=== PATIENT | male | born 1975 | race Caucasian/White ===

== ENCOUNTER 2016-05-27 12:01 | Inpatient (IN) | payer OTHER ==
[2016-05-27 16:37] VITALS: BMI 27.6
--- NOTE | 2016-05-27 16:42 | HP ---
COWS - Scale Resting Pulse: 0= SD 80 or Below Sweatin= Chills/Flushing Restless Observation: 3= Extraneous Movement Pupil Size: 1= Pupils >than Normal Bone or Joint Aches: 2= Severe Diffuse Aches Runny Nose/ Eye Tearin= Runny Nose/Eyes GI Upset > 30mins: 3= Vomiting/Diarrhea Tremor Observation: 2= Slight Tremor Visible Yawning Observation: 0= None Anxiety or Irritability: 2=Irritable/Anxious Goose Flesh Skin: 0=Smooth Skin COWS Score: 16 Admission [facility] Chief Complaint: withdrawal sx Allergies/Adverse Reactions: Allergies Allergy/AdvReac Type Severity Reaction Status Date / Time Fish Containing Products Allergy Mild Hives Verified 05/27/16 16:38 No Known Drug Allergies Allergy Verified 05/27/16 16:38 History of Present Illness: 41 years old male with long history of heroin nicotine dependence, HAS HYPERTENSION AND DEPRESSION IS ADMITTED TO DETOX Exam Limitations: No Limitations - Ebola screening Have you traveled outside of the country in the last 21 days: No Have you had contact with anyone from an Ebola affected area: No Have you been sick,other than usual withdrawal symptoms: No Do you have a fever: No - Review of Systems Constitutional: Chills, Changes in sleep, Weight Stable EENT: reports: No Symptoms Reported, Dental Problems (SENSITIVE TO COLD) Respiratory: reports: No Symptoms reported Cardiac: reports: No Symptoms Reported GI: reports: Diarrhea, Nausea, Poor Fluid Intake, Vomiting, Abdominal cramping : reports: Other (OPIATE INDUCED HESITATION) Musculoskeletal: reports: Back Pain, Joint Pain, Muscle Pain, Neck Pain Integumentary: reports: Change in Color (BOTH FORE ARMS IV OPIATE) Neuro: reports: Tremors Endocrine: reports: No Symptoms Reported Hematology: reports: No Symptoms Reported Psychiatric: reports: Judgement Intact, Orientated x3, Depressed Other Systems: Reviewed and Negative Patient History - Patient Medical History Hx Anemia: No Hx Asthma: No Hx Chronic Obstructive Pulmonary Disease (COPD): No Hx Cancer: No Hx Cardiac Disorders: No Hx Congestive Heart Failure: No Hx Hypertension: Yes (non compliant) Hx Hypercholesterolemia: No Hx Pacemaker: No HX Cerebrovascular Accident: No Hx Seizures: No Hx Dementia: No Hx Diabetes: No Hx Gastrointestinal Disorders: No Hx Liver Disease: No Hx Genitourinary Disorders: No Hx Sexually Transmitted Disorders: Yes (GONORRHEA, TREATED) Hx Renal Disease (ESRD): No Hx Thyroid Disease: No Hx Human Immunodeficiency Virus (HIV): No (negative) Hx Hepatitis C: No Hx Depression: Yes Hx Suicide Attempt: No (denies any S/H ideation) Hx Bipolar Disorder: No Hx Schizophrenia: No - Patient Surgical History Past Surgical History: No Hx Neurologic Surgery: No Hx Cataract Extraction: No Hx Cardiac Surgery: No Hx Lung Surgery: No Hx Breast Surgery: No Hx Breast Biopsy: No Hx Abdominal Surgery: No Hx Appendectomy: No Hx Cholecystectomy: No Hx Genitourinary Surgery: No Hx Orthopedic Surgery: No - PPD History Previous Implant?: Yes Documented Results: Negative w/proof Implanted On Prior [facility] Admission?: Yes Date: 01/21/15 Results: 0 mm PPD to be Administered?: Yes - Smoking Cessation Smoking history: Current every day smoker Have you smoked in the past 12 months: Yes Aproximately how many cigarettes per day: 4 Cigars Per Day: 0 Hx Chewing Tobacco Use: No Initiated information on smoking cessation: Yes 'Breaking Loose' booklet given: 05/27/16 - Substance & Tx. History Hx Alcohol Use: No Hx Substance Use: Yes Substance Use Type: Heroin, Marijuana, Opiates Hx Substance Use Treatment: Yes - Substances Abused Heroin Route: Inhalation Frequency: Daily Amount used: 4 bags Age of first use: 36 Date of Last Use: 05/27/16 Family Disease History - Family Disease History Family Disease History: Diabetes: Mother Admission Physical Exam [facility] - Physical General Appearance: Yes: Appropriately Dressed, Mild Distress, Tremorous, Irritable, Sweating, Anxious HEENTM: Yes: Hearing grossly Normal, Normal ENT Inspection, Normocephalic, Normal Voice Respiratory: Yes: Chest Non-Tender, Lungs Clear, Normal Breath Sounds, No Respiratory Distress, No Accessory Muscle Use Neck: Yes: Supple, Trachea in good position Breast: Yes: Breasts Symetrical Cardiology: Yes: Regular Rhythm, Regular Rate, S1, S2 Abdominal: Yes: Non Tender, Soft, Increased Bowel Sounds Genitourinary: Yes: Hesitency (OPIATE INDUCED) Back: Yes: Normal Inspection Musculoskeletal: Yes: full range of Motion, Gait Steady, Back pain, Muscle Pain Extremities: Yes: Normal Range of Motion, Non-Tender, Tremors Neurological: Yes: Fully Oriented, Alert, Motor Strength 5/5, Normal Response, Depressed Affect Integumentary: Yes: Warm, Moist, Track Puentes Lymphatic: Yes: Within Normal Limits - Diagnostic (1) Nicotine dependence Current Visit: Yes Status: Acute Qualifiers: Nicotine product type: cigarettes Substance use status: in withdrawal Qualified Code(s): F17.213 - Nicotine dependence, cigarettes, with withdrawal (2) Opioid dependence with withdrawal Current Visit: Yes Status: Acute (3) HTN (hypertension) Current Visit: Yes Status: Acute Qualifiers: Hypertension type: essential hypertension Qualified Code(s): I10 - Essential (primary) hypertension (4) Depression (emotion) Current Visit: Yes Status: Acute Qualifiers: Depression Type: dysthymia Qualified Code(s): F34.1 - Dysthymic disorder Cleared for Admission [facility] - Detox or Rehab [facility] Level of Care: Medically Managed Detox Regimen/Protocol: Methadone [facility] Breath Alcohol Content Breath Alcohol Content: 0
[2016-05-27] MEDS ORDERED: P-EPHED 60MG/TRIPROLIDI 2.5MG TABLET PO PRN (16:43)
[2016-05-27] MEDS ORDERED: IBUPROFEN 400 MG TABLET (FP) PO PRN (16:43)
[2016-05-27] MEDS ORDERED: LOPERAMIDE HCL 2 MG CAPSULE PO PRN (16:43)
[2016-05-27] MEDS ORDERED: MENTHOL/PHENOL 1 EACH UD MM PRN (16:43)
[2016-05-27] MEDS ORDERED: MAG HYDROX/AL HYDROX/SIMETH 30 ML UNIT-DOSE CUP PO PRN (16:43)
[2016-05-27] MEDS ORDERED: guaiFENesin/D-METHORPHAN HB 10 ML UNIT-DOSE CUPS PO PRN (16:43)
[2016-05-27] MEDS ORDERED: MAGNESIUM HYDROX 2400MG/30ML ORAL SUSPENSION 30 ML CUP PO PRN (16:43)
[2016-05-27] MEDS ORDERED: ACETAMINOPHEN 325 MG TABLET (FP) PO PRN (16:43)
[2016-05-27] MEDS ORDERED: MAGNESIUM CITRATE 300 ML BOTTLE PO PRN (16:43)
[2016-05-27] MEDS ORDERED: METHADONE HCL 10 MG TABLET (FOR DETOX USE ONLY) PO ONE ×2 (18:00→23:00)
[2016-05-27] MEDS: diazePAM 5 MG TABLET PO PRN ×2 (18:18→22:12)
[2016-05-27] MEDS: NICOTINE POLACRILEX 4 MG GUM BC PRN (18:22)
[2016-05-27] MEDS: diphenhydrAMINE HCL 50 MG CAPSULE PO PRN (22:12)
[2016-05-27] MEDS: THIAMINE HCL 100 MG TABLET (FP) PO SCH (22:12)
[2016-05-27] MEDS: CYCLOBENZAPRINE HCL 10 MG TABLET (FP) PO PRN (22:12)
[2016-05-27] MEDS: cloNIDine HCL 0.1 MG TABLET PO PRN (22:12)
[2016-05-27 22:56] LABS: URINE APPEARANCE CLEAR; URINE BILIRUBIN NEGATIVE (NEGATIVE); URINE BLOOD NEGATIVE (NEGATIVE); URINE COLOR YELLOW; URINE GLUCOSE (UA) NEGATIVE (NEGATIVE); URINE KETONE NEGATIVE (NEGATIVE); URINE LEUK ESTERASE NEGATIVE (NEGATIVE); URINE NITRITE NEGATIVE (NEGATIVE); URINE PROTEIN NEGATIVE (NEGATIVE); URINE UROBILINOGEN NEGATIVE E.U./dl (0.2-1.0)
[2016-05-28] MEDS: diazePAM 5 MG TABLET PO PRN ×5 (03:33→22:51)
[2016-05-28] MEDS: NICOTINE POLACRILEX 4 MG GUM BC PRN ×3 (06:53→13:34)
[2016-05-28] MEDS ORDERED: METHADONE HCL 10 MG TABLET (FOR DETOX USE ONLY) PO ONE (10:00)
[2016-05-28 10:07] LABS: MCH 33.3 pg (25.7-33.7); MCHC 33.6 g/dl (32.0-35.9); MEAN CELL VOLUME 99.1 fl (80-96); MEAN PLT VOLUME 10.1 fl (7.5-11.1); PLATELET COUNT 258 K/MM3 (134-434); RDW 12.3 % (11.9-15.9); WHITE BLOOD COUNT 8.7 K/mm3 (4.0-10.0)
[2016-05-28] MEDS: NICOTINE 14 MG/24 HOURS TOPICAL PATCH TD SCH (10:29)
[2016-05-28] MEDS: PRENATAL VITAMINS W/ FOLIC ACID TABLET (FP) PO SCH (10:30)
[2016-05-28 10:45] LABS: ALK PHOS 135 U/L (45-117); ANION GAP 12 (8-16); BILIRUBIN,TOTAL 0.5 mg/dL (0.2-1.0); CALCIUM 9.2 mg/dL (8.5-10.1); CO2 24 mmol/L (21-32); GLUCOSE,RANDOM 91 mg/dL (74-106); SGOT/AST 26 U/L (15-37); SGPT/ALT 37 U/L (12-78); TOT PROT 7.6 g/dl (6.4-8.2)
--- NOTE | 2016-05-28 10:47 | EKG ---
Test Reason : Blood Pressure : / mmHG Vent. Rate : 071 BPM Atrial Rate : 071 BPM P-R Int : 138 ms QRS Dur : 096 ms QT Int : 400 ms P-R-T Axes : 056 027 028 degrees QTc Int : 434 ms NORMAL SINUS RHYTHM NORMAL ECG NO PREVIOUS ECGS AVAILABLE Confirmed by SHARIF DE LA PAZ MD ([id number]) on 05/28/2016 10:46:45 AM Referred By: Confirmed By:SHARIF DE LA PAZ MD
--- NOTE | 2016-05-28 12:08 | PN ---
S COWS - Scale Resting Pulse: 1= [place] 81-100 Sweatin=Flushed/Facial Moisture Restless Observation: 1= Difficult to Sit Still Pupil Size: 0= Normal to Room Light Bone or Joint Aches: 2= Severe Diffuse Aches Runny Nose/ Eye Tearin= Runny Nose/Eyes GI Upset > 30mins: 2= Nausea/Diarrhea Tremor Observation of Outstretched Hands: 2= Slight Tremor Visible Yawning Observation: 1= 1-2x During Session Anxiety or Irritability: 2=Irritable/Anxious Goose Flesh Skin: 3=Piloerection COWS Score: 18 S Progress Note (SOAP) Subjective: shakes sweats interrupted sleep agitation anxiety body aches Objective: 05/28/16 12:05 Vital Signs Temperature 98.2 F 05/28/16 10:02 Pulse Rate 87 05/28/16 10:02 Respiratory Rate 20 05/28/16 10:02 Blood Pressure 126/74 05/28/16 10:02 O2 Sat by Pulse Oximetry (%) Laboratory Tests 05/27/16 05/28/16 05/28/16 22:40 05:50 05:50 WBC 8.7 RBC 4.54 Hgb 15.1 D Hct 45.0 MCV 99.1 H MCHC 33.6 RDW 12.3 Plt Count 258 MPV 10.1 Sodium 139 Potassium 4.2 Chloride 103 Carbon Dioxide 24 Anion Gap 12 BUN 17 D Creatinine 1.0 Creat Clearance w eGFR > 60 Random Glucose 91 Calcium 9.2 Total Bilirubin 0.5 D AST 26 ALT 37 D Alkaline Phosphatase 135 H Total Protein 7.6 Albumin 4.0 Urine Color Yellow Urine Appearance Clear Urine pH 5.0 Ur Specific [place] 1.027 Urine Protein Negative Urine Glucose (UA) Negative Urine Ketones Negative Urine Blood Negative Urine Nitrite Negative Urine Bilirubin Negative Urine Urobilinogen Negative Ur Leukocyte Esterase Negative awake/alert ambulating no acute distress Assessment: 05/28/16 12:06 withdrawal sx Plan: continue detox increase fluids ensure plus 120ml po bid
[2016-05-28 12:29] LABS: HIV 1 & 2 AB NEGATIVE; HIV 1 AGp24 NEGATIVE
--- NOTE | 2016-05-28 16:29 | CONSULT ---
[facility] Psychiatric Consult - Data Date of interview: 05/28/16 Admission source: [facility] Identifying data: New admission to [facility] for this 41 y/o male seeking detox treatment on for heroin and alcohol dependence.Patient is ,a father of two,domiciled at the [facility]),unemployed and supported on Public Assistance. Substance Abuse History: - Smoking Cessation. Smoking history: Current every day smoker. Have you smoked in the past 12 months: Yes. Aproximately how many cigarettes per day: 4. Cigars Per Day: 0. Hx Chewing Tobacco Use: No. Initiated information on smoking cessation: Yes. 'Breaking Loose' booklet given : 05/27/16. - Substance & Tx. History. Hx Alcohol Use: No. Hx Substance Use: Yes. Substance Use Type: Heroin, Marijuana, Opiates. Hx Substance Use Treatment: Yes. - Substances Abused. Heroin. Route: Inhalation. Frequency : Daily. Amount used: 4 bags. Age of first use: 36. Date of Last Use: . Confirmed by patient. Medical History: Hypertension. Psychiatric History: History of two psychiatric hospitalizations ([facility] in [place] in the s).Diagnosed with MDD and Anxiety Disorder.Was treated with remeron,paxil and other drugs.Lost to follow up for several years.No contact with OPD care providers.Mr Birch requests to get back on seroquel to address his chronic insomnia.No history of suicide attempts. Physical/Sexual Abuse/Trauma History: Patient denies. Mental Status Exam - Mental Status Exam Alert and Oriented to: Time, Place, Person Cognitive Function: Good Patient Appearance: Well Groomed Mood: Nervous, Anxious Affect: Mood Congruent Patient Behavior: Fatigued, Appropriate, Cooperative Speech Pattern: Clear Voice Loudness: Normal Thought Process: Goal Oriented Thought Disorder: Not Present Hallucinations: Denies Suicidal Ideation: Denies Homicidal Ideation: Denies Insight/Judgement: Poor Sleep: Poorly, Difficulty falling asleep Appetite: Good Muscle strength/Tone: Normal Gait/Station: Normal Psychiatric Findings - Problem List ([place] 1, 2,3) (1) Opioid dependence with withdrawal Current Visit: Yes Status: Acute (2) Substance induced mood disorder Current Visit: Yes Status: Acute (3) Nicotine dependence Current Visit: Yes Status: Acute Qualifiers: Nicotine product type: cigarettes Substance use status: in withdrawal Qualified Code(s): F17.213 - Nicotine dependence, cigarettes, with withdrawal (4) Substance-induced sleep disorder Current Visit: Yes Status: Acute (5) HTN (hypertension) Current Visit: Yes Status: Chronic Qualifiers: Hypertension type: essential hypertension Qualified Code(s): I10 - Essential (primary) hypertension - Initial Treatment Plan Initial Treatment Plan: Psychoeducation.Detoxification.Seroquel 100 mg po hs.Side effects/benefits discussed with the patient.He agrees with plan.Observation.
[2016-05-28] MEDS: diphenhydrAMINE HCL 50 MG CAPSULE PO PRN (22:51)
[2016-05-28] MEDS: CYCLOBENZAPRINE HCL 10 MG TABLET (FP) PO PRN (22:51)
[2016-05-28] MEDS: cloNIDine HCL 0.1 MG TABLET PO PRN (22:51)
[2016-05-28] MEDS: THIAMINE HCL 100 MG TABLET (FP) PO SCH (22:51)
[2016-05-28] MEDS: QUEtiapine FUMARATE 100 MG TABLET (FP) PO SCH (22:52)
[2016-05-29] MEDS: diphenhydrAMINE HCL 50 MG CAPSULE PO PRN (01:09)
[2016-05-29] MEDS: diazePAM 5 MG TABLET PO PRN ×5 (03:53→22:32)
[2016-05-29] MEDS ORDERED: METHADONE HCL 5 MG TABLET (FOR DETOX USE ONLY) PO ONE (10:00)
[2016-05-29] MEDS: NICOTINE 14 MG/24 HOURS TOPICAL PATCH TD SCH (10:18)
[2016-05-29] MEDS: NICOTINE POLACRILEX 4 MG GUM BC PRN ×3 (10:20→17:46)
[2016-05-29] MEDS: PRENATAL VITAMINS W/ FOLIC ACID TABLET (FP) PO SCH (10:20)
--- NOTE | 2016-05-29 14:45 | PN ---
S COWS - Scale Resting Pulse: 1= [place] 81-100 Sweatin=Flushed/Facial Moisture Restless Observation: 1= Difficult to Sit Still Pupil Size: 1= Pupils >than Normal Bone or Joint Aches: 2= Severe Diffuse Aches Runny Nose/ Eye Tearin= Nasal Congestion GI Upset > 30mins: 2= Nausea/Diarrhea Tremor Observation of Outstretched Hands: 1= Tremor [place], Not Seen Yawning Observation: 0= None Anxiety or Irritability: 2=Irritable/Anxious Goose Flesh Skin: 0=Smooth Skin COWS Score: 13 S Progress Note (SOAP) Subjective: interrupted sleep, sweats, diarrhea, lbp , jt pains Objective: 05/29/16 14:43 Vital Signs Temperature 98.2 F 05/29/16 13:50 Pulse Rate 82 05/29/16 13:50 Respiratory Rate 16 05/29/16 13:50 Blood Pressure 109/82 05/29/16 13:50 O2 Sat by Pulse Oximetry (%) Laboratory Last Values WBC 8.7 K/mm3 (4.0-10.0) 05/28/16 05:50 RBC 4.54 M/mm3 (4.00-5.60) 05/28/16 05:50 Hgb 15.1 GM/dL (11.7-16.9) D 05/28/16 05:50 Hct 45.0 % (35.4-49) 05/28/16 05:50 MCV 99.1 fl (80-96) H 05/28/16 05:50 MCHC 33.6 g/dl (32.0-35.9) 05/28/16 05:50 RDW 12.3 % (11.9-15.9) 05/28/16 05:50 Plt Count 258 K/MM3 (134-434) 05/28/16 05:50 MPV 10.1 fl (7.5-11.1) 05/28/16 05:50 Sodium 139 mmol/L (136-145) 05/28/16 05:50 Potassium 4.2 mmol/L (3.5-5.1) 05/28/16 05:50 Chloride 103 mmol/L (98-107) 05/28/16 05:50 Carbon Dioxide 24 mmol/L (21-32) 05/28/16 05:50 Anion Gap 12 (8-16) 05/28/16 05:50 BUN 17 mg/dL (7-18) D 05/28/16 05:50 Creatinine 1.0 mg/dL (0.7-1.3) 05/28/16 05:50 Creat Clearance w eGFR > 60 (>60) 05/28/16 05:50 Random Glucose 91 mg/dL (74-106) 05/28/16 05:50 Calcium 9.2 mg/dL (8.5-10.1) 05/28/16 05:50 Total Bilirubin 0.5 mg/dL (0.2-1.0) D 05/28/16 05:50 AST 26 U/L (15-37) 05/28/16 05:50 ALT 37 U/L (12-78) D 05/28/16 05:50 Alkaline Phosphatase 135 U/L (45-117) H 05/28/16 05:50 Total Protein 7.6 g/dl (6.4-8.2) 05/28/16 05:50 Albumin 4.0 g/dl (3.4-5.0) 05/28/16 05:50 Urine Color Yellow 05/27/16 22:40 Urine Appearance Clear 05/27/16 22:40 Urine pH 5.0 (5.0-8.0) 05/27/16 22:40 Ur Specific [place] 1.027 (1.001-1.035) 05/27/16 22:40 Urine Protein Negative (NEGATIVE) 05/27/16 22:40 Urine Glucose (UA) Negative (NEGATIVE) 05/27/16 22:40 Urine Ketones Negative (NEGATIVE) 05/27/16 22:40 Urine Blood Negative (NEGATIVE) 05/27/16 22:40 Urine Nitrite Negative (NEGATIVE) 05/27/16 22:40 Urine Bilirubin Negative (NEGATIVE) 05/27/16 22:40 Urine Urobilinogen Negative E.U./dl (0.2-1.0) 05/27/16 22:40 Ur Leukocyte Esterase Negative (NEGATIVE) 05/27/16 22:40 RPR Titer Nonreactive (NONREACTIVE) 05/28/16 05:50 HIV 1&2 Antibody Screen Negative 05/27/16 09:00 HIV P24 Antigen Negative 05/27/16 09:00 pt aox3 in nad lying in bed Assessment: 05/29/16 14:44 withdrawl sx;s lbp Plan: cont. detox increase fluids lidocaine patch motrin prn
[2016-05-29] MEDS ORDERED: LIDOCAINE 5% TOPICAL PATCH TP ONE (15:06)
[2016-05-29] MEDS: QUEtiapine FUMARATE 100 MG TABLET (FP) PO SCH (22:32)
[2016-05-29] MEDS: THIAMINE HCL 100 MG TABLET (FP) PO SCH (22:32)
[2016-05-30] MEDS: diazePAM 5 MG TABLET PO PRN ×4 (01:57→14:50)
[2016-05-30] MEDS ORDERED: METHADONE HCL 5 MG TABLET (FOR DETOX USE ONLY) PO ONE (10:00)
[2016-05-30] MEDS: PRENATAL VITAMINS W/ FOLIC ACID TABLET (FP) PO SCH (10:03)
[2016-05-30] MEDS: CYCLOBENZAPRINE HCL 10 MG TABLET (FP) PO PRN ×2 (10:03→22:44)
[2016-05-30] MEDS: NICOTINE 14 MG/24 HOURS TOPICAL PATCH TD SCH (10:04)
[2016-05-30] MEDS: NICOTINE POLACRILEX 4 MG GUM BC PRN ×3 (10:04→14:50)
[2016-05-30] MEDS: LIDOCAINE 5% TOPICAL PATCH TP SCH (10:43)
--- NOTE | 2016-05-30 12:52 | PN ---
[facility] Progress Note (SOAP) Subjective: agitation sweats interrupted sleep Objective: 05/30/16 12:48 Vital Signs Temperature 98.2 F 05/30/16 09:28 Pulse Rate 85 05/30/16 09:28 Respiratory Rate 18 05/30/16 09:28 Blood Pressure 126/86 05/30/16 09:28 O2 Sat by Pulse Oximetry (%) awake/alert ambulating no acute distress Assessment: 05/30/16 12:52 withdrawal sx Plan: continue detox increase fluids
[2016-05-30] MEDS: diphenhydrAMINE HCL 50 MG CAPSULE PO PRN (22:44)
[2016-05-30] MEDS: QUEtiapine FUMARATE 100 MG TABLET (FP) PO SCH (22:44)
[2016-05-30] MEDS: THIAMINE HCL 100 MG TABLET (FP) PO SCH (22:44)
[2016-05-31] MEDS: NICOTINE POLACRILEX 4 MG GUM BC PRN ×2 (09:32→13:12)
[2016-05-31] MEDS ORDERED: METHADONE HCL 10 MG TABLET (FOR DETOX USE ONLY) PO ONE (10:00)
[2016-05-31] MEDS: PRENATAL VITAMINS W/ FOLIC ACID TABLET (FP) PO SCH (10:25)
[2016-05-31] MEDS: LIDOCAINE 5% TOPICAL PATCH TP SCH (10:26)
[2016-05-31] MEDS: NICOTINE 14 MG/24 HOURS TOPICAL PATCH TD SCH (10:26)
--- NOTE | 2016-05-31 11:08 | PN ---
[facility] Progress Note (SOAP) Subjective: REPORTS FEELING WEAK, POOR SLEEP, DIARRHEA, SWEATING Objective: 05/31/16 11:07 Laboratory Tests 05/27/16 05/27/16 05/28/16 09:00 22:40 05:50 WBC 8.7 RBC 4.54 Hgb 15.1 D Hct 45.0 MCV 99.1 H MCHC 33.6 RDW 12.3 Plt Count 258 MPV 10.1 Sodium Potassium Chloride Carbon Dioxide Anion Gap BUN Creatinine Creat Clearance w eGFR Random Glucose Calcium Total Bilirubin AST ALT Alkaline Phosphatase Total Protein Albumin Urine Color Yellow Urine Appearance Clear Urine pH 5.0 Ur Specific [place] 1.027 Urine Protein Negative Urine Glucose (UA) Negative Urine Ketones Negative Urine Blood Negative Urine Nitrite Negative Urine Bilirubin Negative Urine Urobilinogen Negative Ur Leukocyte Esterase Negative RPR Titer HIV 1&2 Antibody Screen Negative HIV P24 Antigen Negative 05/28/16 05/28/16 05:50 05:50 WBC RBC Hgb Hct MCV MCHC RDW Plt Count MPV Sodium 139 Potassium 4.2 Chloride 103 Carbon Dioxide 24 Anion Gap 12 BUN 17 D Creatinine 1.0 Creat Clearance w eGFR > 60 Random Glucose 91 Calcium 9.2 Total Bilirubin 0.5 D AST 26 ALT 37 D Alkaline Phosphatase 135 H Total Protein 7.6 Albumin 4.0 Urine Color Urine Appearance Urine pH Ur Specific [place] Urine Protein Urine Glucose (UA) Urine Ketones Urine Blood Urine Nitrite Urine Bilirubin Urine Urobilinogen Ur Leukocyte Esterase RPR Titer Nonreactive HIV 1&2 Antibody Screen HIV P24 Antigen Vital Signs - 24 hr 05/30/16 05/30/16 05/30/16 14:01 18:26 23:07 Temperature 96.1 F L 96.9 F L 97.9 F Pulse Rate 84 74 81 Respiratory 18 18 18 Rate Blood Pressure 133/79 118/68 140/92 05/31/16 05/31/16 05/31/16 00:30 06:00 10:24 Temperature 96.4 F L 98 F Pulse Rate 113 H 98 H Respiratory 18 18 16 Rate Blood Pressure 128/81 132/67 Assessment: 05/31/16 11:07 ONGOING WITHDRAWAL Plan: CONTINUE DETOX PROTOCOL
[2016-05-31 17:20] VITALS: TEMP 98.1
[2016-05-31] MEDS: CYCLOBENZAPRINE HCL 10 MG TABLET (FP) PO PRN (17:29)
[2016-05-31 21:43] VITALS: BP 131/87; PULSE 88
[2016-05-31] MEDS: QUEtiapine FUMARATE 100 MG TABLET (FP) PO SCH (22:30)
[2016-05-31] MEDS: THIAMINE HCL 100 MG TABLET (FP) PO SCH (22:30)
[2016-05-31] MEDS: diphenhydrAMINE HCL 50 MG CAPSULE PO PRN (22:31)
[2016-06-01] MEDS ORDERED: METHADONE HCL 5 MG TABLET (FOR DETOX USE ONLY) PO ONE (06:00)
--- NOTE | 2016-08-22 15:53 | DS ---
[facility] Detox Discharge Summary Admission Date: 05/27/16 Discharge Date: 06/01/16 - History Present History: Cannabis Dependence, Opioid Dependence - Physical Exam Results Vital Signs: Vital Signs Temperature 98.1 F 05/31/16 21:42 Pulse Rate 88 05/31/16 21:42 Respiratory Rate 18 06/01/16 03:30 Blood Pressure 131/87 05/31/16 21:42 O2 Sat by Pulse Oximetry (%) - Treatment Hospital Course: Detox Protocol Followed, Detoxed Safely, Responded well, Discharged Condition Good - Medication Discharge Medications: Ambulatory Orders Quetiapine Fumarate [Seroquel] 100 mg PO HS #30 tablet 05/28/16 - Diagnosis (1) Depression (emotion) Status: Chronic Qualifiers: Depression Type: dysthymia Qualified Code(s): F34.1 - Dysthymic disorder (2) Nicotine dependence Status: Chronic Qualifiers: Nicotine product type: cigarettes Substance use status: uncomplicated Qualified Code(s): F17.210 - Nicotine dependence, cigarettes, uncomplicated (3) Opioid dependence with withdrawal Status: Chronic (4) Cannabis dependence Status: Chronic (5) HTN (hypertension) Status: Chronic Qualifiers: Hypertension type: essential hypertension Qualified Code(s): I10 - Essential (primary) hypertension - AMA Did Patient Leave Against Medical Advice: No
== END 2016-06-01 06:09 | disposition home or self-care (01) | DRG 773 ==
LOC: YASAS 12:01 → Y6N 17:39
PROVIDERS: ADMIT Internal Medicine Addiction Medicine; ATTEND Internal Medicine Addiction Medicine
PROC: HZ2ZZZZ Detoxification Services for Substance Abuse Treatment (ICD-10-PCS; principal; 2016-06-01)
DX: F11.23 Opioid dependence with withdrawal (principal); F17.210 Nicotine dependence, cigarettes, uncomplicated; F19.24 Other psychoactive substance dependence with psychoactive substance-induced mood disorder; F19.282 Other psychoactive substance dependence with psychoactive substance-induced sleep disorder; F34.1 Dysthymic disorder; I10 Essential (primary) hypertension
CPT/HCPCS: 36415; 80053; 81003; 85027; 86593; 87389; 93005; 93010